=== PATIENT | male | born 1960 | race African-American/Black ===

== ENCOUNTER 2021-11-20 05:20 | Emergency (ER) | payer OTHER ==
[~2021-11-20] VITALS: Ht 170.2 cm; Wt 99.1 kg
[2021-11-20] MEDS ORDERED: GUAI118L41 PO (05:42)
[2021-11-20] MEDS ORDERED: HYDR25TA2 PO (05:42)
[2021-11-20] MEDS ORDERED: IPRA4AER IH (05:42)
[2021-11-20] MEDS ORDERED: CLON0.1T2 PO (05:42)
[2021-11-20] MEDS ORDERED: LORA10TA7 PO (05:42)
[2021-11-20] MEDS ORDERED: CITA10TA99 PO (05:42)
[2021-11-20] MEDS ORDERED: ATOR40TA28 PO (05:42)
[2021-11-20] MEDS ORDERED: SILV20CR11 TP (05:42)
[2021-11-20] MEDS ORDERED: SILD25 PO (05:42)
[2021-11-20] MEDS ORDERED: INSU100I26 SQ (05:42)
[2021-11-20] MEDS ORDERED: NICO-800 TD (05:42)
[2021-11-20] MEDS ORDERED: NICO-803 TD (05:42)
[2021-11-20] MEDS ORDERED: CALC500T37 PO (05:42)
[2021-11-20] MEDS ORDERED: ALBU8.5H8 IH (05:42)
[2021-11-20] MEDS ORDERED: ASPI-1450 PO (05:42)
[2021-11-20] MEDS ORDERED: AMLO-258 PO (05:42)
[2021-11-20] MEDS ORDERED: OMEP20 PO (05:42)
[2021-11-20] MEDS ORDERED: DOXA1TAB6 PO (05:42)
[2021-11-20] MEDS ORDERED: TRI115O TP (05:42)
[2021-11-20] MEDS ORDERED: ACET-3560 PO (05:42)
[2021-11-20] MEDS ORDERED: IBUP-2071 PO (05:42)
[2021-11-20] MEDS ORDERED: GABA-1181 PO (05:42)
[2021-11-20] MEDS ORDERED: NICO-703 TD (05:42)
[2021-11-20] MEDS ORDERED: CARV25 PO (05:42)
[2021-11-20] MEDS ORDERED: LISI-894 PO (05:42)
[2021-11-20] MEDS ORDERED: FAMO20 PO (05:42)
[2021-11-20] MEDS ORDERED: HYDR10TA31 PO (05:42)
[2021-11-20] MEDS ORDERED: POLY238P PO (06:42)
[2021-11-20 06:49] VITALS: BP 141/76
== END 2021-11-20 06:54 | disposition home or self-care (01) ==
LOC: EMS 05:24
DX: K56.41 Fecal impaction (principal); J45.909 Unspecified asthma, uncomplicated; F32.9 Major depressive disorder, single episode, unspecified; E11.9 Type 2 diabetes mellitus without complications; K21.9 Gastro-esophageal reflux disease without esophagitis; E78.00 Pure hypercholesterolemia, unspecified; I10 Essential (primary) hypertension; F17.210 Nicotine dependence, cigarettes, uncomplicated; G89.29 Other chronic pain; Z79.899 Other long term (current) drug therapy; Z79.82 Long term (current) use of aspirin
CPT/HCPCS: 82962; 99283; 99284

== ENCOUNTER 2021-11-30 13:19 | Emergency (ER) | payer OTHER ==
[~2021-11-30] VITALS: Ht 172.7 cm; Wt 90.9 kg
[~2021-11-30 13:19] MED LIST: ACET-3560 PO; ALBU8.5H8 IH; AMLO-258 PO; ASPI-1450 PO; ATOR40TA28 PO; CALC500T37 PO; CARV25 PO; CITA10TA99 PO; CLON0.1T2 PO; DOXA1TAB6 PO; FAMO20 PO; GABA-1181 PO; GUAI118L41 PO; HYDR10TA31 PO; HYDR25TA2 PO; IBUP-2071 PO; INSU100I26 SQ; IPRA4AER IH; LISI-894 PO; LORA10TA7 PO; NICO-703 TD; NICO-800 TD; NICO-803 TD; OMEP20 PO; POLY238P PO; SILD25 PO; SILV20CR11 TP; TRI115O TP
[2021-11-30] MEDS ORDERED: MINERAL OIL 133 ML ENEMA PR ONE (15:45)
[2021-11-30 17:19] VITALS: BP 150/75
== END 2021-11-30 17:36 | disposition home or self-care (01) ==
LOC: EMS 13:22
DX: K59.00 Constipation, unspecified (principal); I10 Essential (primary) hypertension; E11.9 Type 2 diabetes mellitus without complications; E78.00 Pure hypercholesterolemia, unspecified; K21.9 Gastro-esophageal reflux disease without esophagitis; J45.909 Unspecified asthma, uncomplicated; E03.9 Hypothyroidism, unspecified; Z79.899 Other long term (current) drug therapy; Z79.82 Long term (current) use of aspirin
CPT/HCPCS: 99284; Z7502; Z7610